=== PATIENT | male | born 1955 | race Caucasian/White ===

== ENCOUNTER 2018-11-24 09:16 | Inpatient (IN) ==
[2018-11-24] MEDS ORDERED: DILTIAZEM 25 MG/5 ML VIAL IV ONE ×2 (09:20→11:05)
[2018-11-24] MEDS ORDERED: 0.9 % SODIUM CHLORIDE 1,000 ML IV ONE (09:20)
[2018-11-24] MEDS ORDERED: DILTIAZEM 125 MG in DEXTROSE 5% IN WATER 100 ML IV SCH (09:45)
--- NOTE | 2018-11-24 10:01 | XRay Report ---
CLINICAL INFORMATION: palpitations COMPARISON: 08/19/2012. FINDINGS: Films taken with suboptimal inspiratory result and rightward rotation. The heart size, mediastinum and pulmonary vessels are normal for technique. The lungs are clear. There are no effusions. The bones and soft tissues are within normal limits. IMPRESSION: Normal chest. Interpreted and Authenticated by: Sin Adams 11/24/18
--- NOTE | 2018-11-24 10:04 | Emergency Department Note ---
Arrhythmia/Palpitations HPI - General Chief Complaint: Arrhythmia/Palpitations Stated Complaint: high BP, tachycardic Time Seen by Provider: 11/24/18 09:37 Source: patient Mode of arrival: ambulatory Limitations: no limitations - History of Present Illness Complaint: rapid heart beat, palpitations Onset (ago): day(s) (since saturday) Duration: constant Severity: moderate Context: occurred during rest, other (he thinks he might have been in the sun a bit more than usual) Associated symptoms: Reports: chest pain, shortness of breath, near-syncope, nausea, anxiety, diaphoresis. Denies: syncope, vomiting, cough, paresthesias, feeling of impending doom, muscle cramps Treatments prior to arrival: other (pt takes metoprolol at night) - Related Data Home Medications Medication Instructions Recorded Confirmed aspirin 81 mg tablet,delayed 81 mg PO QDAY 10/12/15 11/24/18 release Previous Rx's Medication Instructions Recorded lisinopril 10 mg tablet See Rx Instructions .ROUTE 08/15/18 .COMPLEX #45 tablet metoprolol succinate ER 50 mg See Rx Instructions .ROUTE 08/15/18 tablet,extended release 24 hr .COMPLEX #30 tablet Allergies Allergy/AdvReac Type Severity Reaction Status Date / Time No Known Drug Allergies Allergy Verified 11/24/18 09:19 Review of Systems Constitutional: Reports: sweats. Denies: fever, chills Eyes: Denies: vision change ENT ED: Denies: ear pain, throat pain Cardiovascular: Reports: chest pain, palpitations, dyspnea on exertion. Denies: orthopnea, edema, syncope, paroxysmal nocturnal dyspnea Respiratory: Denies: cough, shortness of breath Gastrointestinal: Denies: abdominal pain, nausea, vomiting Genitourinary: Denies: dysuria, frequency Musculoskeletal: Denies: back pain, joint swelling Integumentary: Denies: rash, lesions Neurological: Denies: headache, weakness Psychiatric: Denies: anxiety, depression Endocrine: Denies: fatigue, heat or cold intolerance Hematological/Lymphatic: Denies: easy bleeding, easy bruising Past Medical History - Past Medical History [facility] Narrative: Family History (Last Reviewed 11/14/17 @ 09:07 by LUCIANO Hendricks) Unknown Coronary artery disease Colon polyp Hypertension Mother Hypertension Medical History (Last Reviewed 11/14/17 @ 09:07 by LUCIANO Hendricks) Hypertriglyceridemia (Acute) Low testosterone (Acute) Hyperglycemia (Acute) Liver lesion (Acute) Fatigue (Chronic) Sleep apnea (Chronic) H/O endoscopy (Chronic) Diarrhea (Chronic) Esophageal dilatation (Chronic) History of endoscopy (Chronic 09/05/11) Inguinal neuralgia (Chronic) Hypertension (Chronic) Right groin pain (Chronic) Acute bronchitis (Resolved) Bloating (Resolved) Bursitis of right elbow (Resolved) Change in bowel habit (Resolved) Constipation (Resolved) Gas pain (Resolved) Inguinal hernia bilateral, non-recurrent (Resolved) Injury of right elbow (Resolved) Left groin hernia (Resolved) Left shoulder pain (Resolved) Limited joint range of motion (Resolved) Lower abdominal pain (Resolved) Neuropathy (Resolved) Olecranon bone spur (Resolved) Osteophyte of right elbow (Resolved) Other specified pruritic conditions (Resolved) Shoulder strain (Resolved) Sleep disturbance, unspecified (Resolved) Spasm of muscle (Resolved) Sprain of hand, unspecified site (Resolved) Suprapubic pain (Resolved) Tenderness (Resolved) Weakness (Resolved) All Active Problems (Last Reviewed 11/14/17 @ 09:07 by LUCIANO Hendricks) Abscess or cellulitis of wrist (Acute) Hypertriglyceridemia (Acute) Low testosterone (Acute) Hyperglycemia (Acute) Liver lesion (Acute) Fatigue (Chronic) Sleep apnea (Chronic) S/P ear surgery (Chronic) Hx of shoulder surgery (Chronic) H/O endoscopy (Chronic) Diarrhea (Chronic) Esophageal dilatation (Chronic) History of endoscopy (Chronic 09/05/11) Inguinal neuralgia (Chronic) History of elbow surgery (Chronic) Hypertension (Chronic) Right groin pain (Chronic) H/O inguinal hernia repair (Chronic) History of colonoscopy (Chronic 01/10/15) Past Surgical History (Last Reviewed 11/14/17 @ 09:07 by LUCIANO Hendricks) S/P ear surgery (Chronic) Hx of shoulder surgery (Chronic) History of elbow surgery (Chronic) H/O inguinal hernia repair (Chronic) History of colonoscopy (Chronic 01/10/15) History of repair of left rotator cuff (Chronic 03/02/16) History of hernia surgery (Resolved) Medical history: Reports: no medical history - Social History smoking status: Never smoker Alcohol use: Reports: Occasionally Drug use: Reports: none Physical Exam Limitations: no limitations General appearance: alert, anxious, in distress Head: atraumatic, normocephalic Eye: Present: normal appearance, PERRL, EOMI. Absent: scleral icterus, conjunctival injection ENT: normal oropharynx, mucous membranes moist Neck: Present: trachea midline. Absent: lymphadenopathy, thyromegaly Chest: Present: symmetric chest wall rise Respiratory: Present: normal lung sounds bilaterally. Absent: respiratory dist ress, wheezes, stridor, accessory muscle use, prolonged expiratory phase Cardiovascular: Present: tachycardia. Absent: systolic murmur, diastolic murmur Abdominal: Present: soft. Absent: distention, tenderness, guarding, rebound, rigidity, organomegaly, mass Extremities: Absent: pedal edema, pretibial edema, calf tenderness Back: Absent: CVA tenderness (R), CVA tenderness (L), spinous process tenderness Neurological: Present: alert, oriented X3 Psychiatric: Present: normal affect, normal mood Skin: Present: warm, dry Course Vital Signs Temperature 98.7 F 11/24/18 09:17 Pulse Rate 168 H 11/24/18 09:17 Respiratory Rate 27 H 11/24/18 09:17 Blood Pressure 171/124 11/24/18 09:17 Pulse Oximetry (%) 99 11/24/18 09:17 Temperature 97.2 F 11/24/18 14:39 Pulse Rate 83 11/24/18 14:06 Respiratory Rate 24 H 11/24/18 14:51 Blood Pressure 154/89 11/24/18 14:51 Pulse Oximetry (%) 98 11/24/18 14:51 Arrhythmia/Palpitations - [facility] Narrative Medical decision making narrative: 63-year-old male presenting to the emergency department chief complaint of palpitations. Patient noted to have increased heart rate in urgent care and proceeding with immediately to the emergency department. On further history it is noted patient has had symptoms since Saturday. My understanding from urgent care was that symptoms had just begun, However on further history patient noted to have symptoms since Saturday. Patient with reasonable response to initial dose of Cardizem at 15 mg IV resulting in heart rate decreased to the 130s initially started in the 160s. Initiated drip at 5 titration over roughly an hour period of time to 15 patient with persistent tachycardia at 160s requiring an additional 10 mg of Cardizem IV at 11:07 AM. We were able to get the rate well controlled in the emergency department into the low 100s with the above medication regimen. Patient was also provided with first dose of Eliquis 5 mg p.o. Consulted with hospitalist as well as cardiology to define future course and most reasonable plan would be admission additional evaluation and rate control. - Differential Diagnosis Differential Diagnosis: Likely: palpitations, sinus tachycardia, artial fibrillation, artial flutter, supraventricular tachycardia, WPW. Unlikely: anxiety, ventricular premature beats, ventricular tachycardia - Lab Data Result diagrams: 11/24/18 09:43 11/24/18 09:43 Lab Results 11/24/18 11/24/18 11/24/18 Range/Units 09:43 09:43 09:43 WBC 9.0 (4.5-11.0) K/mcL RBC 4.80 (4.50-5.90) M/mcL Hgb 14.8 (13.5-16.5) g/dL Hct 44.5 (41.0-55.0) % MCV 92.8 (80.0-100.0) fL MCH 30.8 (26.0-34.0) pg MCHC 33.1 (31.0-36.0) g/dL RDW 13.4 (11.5-14.5) % Plt Count 181 (140-440) K/mcL MPV 10.1 (7.4-10.4) fL Gran % 65.8 (38.0-78.0) % Lymph % (Auto) 24.3 (15.5-49.0) % [place] % (Auto) 8.4 (1.0-12.0) % Eos % (Auto) 1.1 (0.0-7.0) % Baso % (Auto) 0.4 (0.0-2.0) % Gran # 5.9 (1.8-8.0) K/mcL Lymph # (Auto) 2.2 (1.5-4.8) K/mcL [place] # (Auto) 0.8 (0.1-0.9) K/mcL Eos # (Auto) 0.1 (0.0-0.7) K/mcL Baso # (Auto) 0 (0.0-0.3) K/mcL Sodium 142 (133-145) mmol/L Potassium 4.0 (3.3-5.1) mmol/L Chloride 104 (96-108) mmol/L Carbon Dioxide 25 (22-30) mmol/L Anion Gap 13.0 (8-16) BUN 14 (8-23) mg/dl Creatinine 0.9 (0.7-1.2) mg/dl GFR Calculation 90 Glucose 106 H (70-105) mg/dL Calcium 10.0 (8.6-10.4) mg/dl Magnesium (1.6-2.5) mg/dL Total Bilirubin 0.7 (0.0-1.0) mg/dL AST 8 (0-37) U/l ALT 24 (0-40) U/l Alkaline Phosphatase 68 (39-117) U/L Troponin T < 0.01 (0-0.03) ng/ml NT-Pro-B Natriuret Pep 2642.0 H (0-125) pg/ml Total Protein 7.5 (5.9-8.4) gm/dL Albumin 4.5 (3.2-5.2) gm/dL Globulin 3.0 (2.2-3.7) gm/dL Albumin/Globulin Ratio 1.5 (1.0-2.3) Triglycerides (<150) mg/dl Cholesterol (<200) mg/dl LDL Cholesterol, Calc (SEE CHART) mg/dl Non-HDL Cholesterol (LDL TARGET+30) HDL Cholesterol (>40) mg/dl TSH (0.27-5.01) uIU/ml 11/24/18 11/24/18 Range/Units 09:43 09:43 WBC (4.5-11.0) K/mcL RBC (4.50-5.90) M/mcL Hgb (13.5-16.5) g/dL Hct (41.0-55.0) % MCV (80.0-100.0) fL MCH (26.0-34.0) pg MCHC (31.0-36.0) g/dL RDW (11.5-14.5) % Plt Count (140-440) K/mcL MPV (7.4-10.4) fL Gran % (38.0-78.0) % Lymph % (Auto) (15.5-49.0) % [place] % (Auto) (1.0-12.0) % Eos % (Auto) (0.0-7.0) % Baso % (Auto) (0.0-2.0) % Gran # (1.8-8.0) K/mcL Lymph # (Auto) (1.5-4.8) K/mcL [place] # (Auto) (0.1-0.9) K/mcL Eos # (Auto) (0.0-0.7) K/mcL Baso # (Auto) (0.0-0.3) K/mcL Sodium (133-145) mmol/L Potassium (3.3-5.1) mmol/L Chloride (96-108) mmol/L Carbon Dioxide (22-30) mmol/L Anion Gap (8-16) BUN (8-23) mg/dl Creatinine (0.7-1.2) mg/dl GFR Calculation Glucose (70-105) mg/dL Calcium (8.6-10.4) mg/dl Magnesium 2.1 (1.6-2.5) mg/dL Total Bilirubin (0.0-1.0) mg/dL AST (0-37) U/l ALT (0-40) U/l Alkaline Phosphatase (39-117) U/L Troponin T (0-0.03) ng/ml NT-Pro-B Natriuret Pep (0-125) pg/ml Total Protein (5.9-8.4) gm/dL Albumin (3.2-5.2) gm/dL Globulin (2.2-3.7) gm/dL Albumin/Globulin Ratio (1.0-2.3) Triglycerides 149 (<150) mg/dl Cholesterol 186 (<200) mg/dl LDL Cholesterol, Calc 109 H (SEE CHART) mg/dl Non-HDL Cholesterol 138 H (LDL TARGET+30) HDL Cholesterol 48 (>40) mg/dl TSH 1.62 (0.27-5.01) uIU/ml - EKG Data Rate: tachycardia Rhythm: SVT [place]/QRS: normal Interpretation: nonspecific ST-T wave changes (SVT) Critical Care Time Critical Care Time: Yes Total Critical Care Time: 45 Attestation: This critical care time was direct patient care exclusive of other procedures. 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) Condition: Fair
[2018-11-24 10:24] LABS: Basophils # (Auto) 0 K/mcL (0.0-0.3); Basophils % (Auto) 0.4 % (0.0-2.0); Eosinophils # (Auto) 0.1 K/mcL (0.0-0.7); Eosinophils % (Auto) 1.1 % (0.0-7.0); Granulocytes % (Auto) 65.8 % (38.0-78.0); Hematocrit 44.5 % (41.0-55.0); Hemoglobin 14.8 g/dL (13.5-16.5); Lymphocytes # (Auto) 2.2 K/mcL (1.5-4.8); Lymphocytes % (Auto) 24.3 % (15.5-49.0); Mean Cell Volume 92.8 fL (80.0-100.0); Mean Corpuscular HGB Conc 33.1 g/dL (31.0-36.0); Mean Platelet Volume 10.1 fL (7.4-10.4); Monocytes # (Auto) 0.8 K/mcL (0.1-0.9); Monocytes % (Auto) 8.4 % (1.0-12.0); Platelet Count 181 K/mcL (140-440); Red Cell Distribution Width 13.4 % (11.5-14.5)
[2018-11-24 10:49] LABS: ALT/SGPT 24 U/l (0-40); AST/SGOT 8 U/l (0-37); Albumin 4.5 gm/dL (3.2-5.2); Albumin/Globulin Ratio 1.5 (1.0-2.3); Alkaline Phosphatase 68 U/L (39-117); Bilirubin,Total 0.7 mg/dL (0.0-1.0); Blood Urea Nitrogen 14 mg/dl (8-23); Carbon Dioxide 25 mmol/L (22-30); Chloride 104 mmol/L (96-108); Glomerular Filtration Rate 90; Glucose 106 mg/dL (70-105)
[2018-11-24 12:36] LABS: Thyroid Stimulating Hormone 1.62 uIU/ml (0.27-5.01)
[2018-11-24] MEDS ORDERED: APIXABAN 5 MG TABLET PO ONE (12:38)
--- NOTE | 2018-11-24 13:37 | Internal Med History&Physical ---
Medical - H&P: HPI Patient information: Note initiated : 11/24/18 at 1:32 pm Service Date, if different from initiated Date: [] Patient: Navi Cervantes a 63 y/o M admitted on for high BP, tachycardic. Chief Complaint: [] History of present illness: Mr. Cervantes is a 63 year old M Who presents [facility] the ED from [facility] for palpitations hypertension malaise. Patient recently went on a 5-day rafting [place] . Saturday he was putting stuff away and just felt sluggish and weak. He was out in the hot sun and especially after the float he just thought he was dehydrated and tired from the sun. He had hard time sleeping that night with his CPAP. Also noticed shortness of breath especially when he was laying down. And he did feel like his heart was rapidly meeting. Symptoms progressed Saturday and then he was a little bit better on Saturday. And then on he went to see his primary care provider but symptoms just seem to get worse and thus went to [facility] and was found to have significant tachycardia and hypertension was sent over to the ED. He is typically pretty active [place] and has no issues with shortness of breath or energy. He took his blood pressure over the weekend it was 155/90 which is high for him is typically well controlled and he has not missed any of his medications. He has couple drinks 3-4 times a week, no history of arrhythmia or family history of arrhythmia. No other medical conditions other than obstructive sleep apnea and hypertension. He also complained of some indigestion or "gas bubble" and some diarrhea since Saturday. Also has a bit of a headache, and has had lightheadedness during this episode. In the ED is up to 168 started on diltiazem drip. Case was also discussed with Dr. Lovett at [facility]. And because the symptoms had been got going over 48 hours it was recommended to obtain rate control started on anticoagulation and then follow-up with cardiology for potential cardioversi on at a later time. Denies any fevers chills or chest pain or coughing. Review of Systems: Pertinent positives as above. denies fever/chills/nausea/vomiting/chest pain/cough. Remaining 10 point review of system reviewed negative Medical - H&P: PMH Medical history: Medical History (Last Reviewed 11/14/17 @ 09:07 by LUCIANO Hendricks) Hypertension Obstructive sleep apnea on CPAP Past Surgical History (Last Reviewed 11/14/17 @ 09:07 by LUCIANO Hendricks) S/P ear surgery (Chronic) Hx of shoulder surgery (Chronic) History of elbow surgery (Chronic) H/O inguinal hernia repair (Chronic) History of colonoscopy (Chronic 01/10/15) History of repair of left rotator cuff (Chronic 03/02/16) History of hernia surgery (Resolved) Family History (Last Reviewed 11/14/17 @ 09:07 by LUCIANO Hendricks) Unknown Coronary artery disease Colon polyp Hypertension Mother Hypertension Social History (Last Updated 11/24/18 @ 09:18 by Radha Buitrago PA-C) Denies tobacco Drinks 3-4 times per week a couple drinks 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 Medical - H&P: Meds Home Medications Medication Instructions Recorded Confirmed Type aspirin 81 mg tablet,delayed 81 mg PO QDAY 10/12/15 11/24/18 History release lisinopril 10 mg tablet See Rx Instructions .ROUTE 08/15/18 11/24/18 Rx .COMPLEX #45 tablet metoprolol succinate ER 50 mg See Rx Instructions .ROUTE 08/15/18 11/24/18 Rx tablet,extended release 24 hr .COMPLEX #30 tablet Allergies Allergy/AdvReac Type Severity Reaction Status Date / Time No Known Drug Allergies Allergy Verified 11/24/18 09:19 Medical - H&P: Exam - Constitutional Vitals: Temp Pulse Resp BP Pulse Ox 98.7 F 86 24 H 141/78 95 11/24/18 09:17 11/24/18 12:03 11/24/18 12:03 11/24/18 12:01 11/24/18 12:03 Exam: General: Alert, Awake, No acute Distress Eyes/N/T: EOMI, PEERL, DMM Head/Neck: neck supple, normocephalic atraumatic CV: Tachycardic and regular with occasional irregularity, no murmurs, normal s1/s2 Pulm: Clear b/l, no wheezing/rhonchi/rales Abd: soft, nontender, +BS x4 Ext: no clubbing/cyanosis/edema Neuro: Alert, no focal deficits, moves all extremities, CN 2-12 grossly intact, symmetrical strength b/l upper/lower, sensations intact b/l upper/lower Skin: warm/dry Medical - H&P: Reslt - Labs CBC & Chem 7: 11/24/18 09:43 11/24/18 09:43 Labs: Short CBC 11/24/18 Range/Units 09:43 WBC 9.0 (4.5-11.0) K/mcL Hgb 14.8 (13.5-16.5) g/dL Hct 44.5 (41.0-55.0) % Plt Count 181 (140-440) K/mcL BMP 11/24/18 09:43 Sodium 142 Potassium 4.0 Chloride 104 Carbon Dioxide 25 BUN 14 Creatinine 0.9 Glucose 106 H Calcium 10.0 Cardiac Enzymes 11/24/18 Range/Units 09:43 Troponin T < 0.01 (0-0.03) ng/ml Liver Function 11/24/18 Range/Units 09:43 Total Bilirubin 0.7 (0.0-1.0) mg/dL AST 8 (0-37) U/l ALT 24 (0-40) U/l Alkaline Phosphatase 68 (39-117) U/L Albumin 4.5 (3.2-5.2) gm/dL - Impressions Chest x-ray unremarkable Medical - H&P: A/P - Narrative A/P Narrative: A: *Atrial flutter, new onset but greater than 48 hours: -Mg/TSH/Trop ok; good oxygenation on RA *HTN Urgency: *RIMA on CPAP: * P: -wean of dilt gtt to BB -echo pending -IV hydration -Case was discussed with [facility] bin packer Dr. Lovett because this has been going on for you in 48 hours goal will be to rate control and start anticoagulation then for follow-up with cardiology for likely cardioversion at some point -f/u with Cardiology (schedule with Dr. Sethi if possible) - - -stool studies if has further episode of diarrhea -home cpap -ppx: Eliquis
[2018-11-24] MEDS ORDERED: METOCLOPRAMIDE 10 MG/2 ML VIAL IV PRN (14:31)
[2018-11-24] MEDS ORDERED: POTASSIUM CHLORIDE 20 MEQ TABLET PO PRN ×2 (14:31)
[2018-11-24] MEDS ORDERED: ONDANSETRON 4 MG/2 ML VIAL IV PRN (14:31)
[2018-11-24] MEDS ORDERED: IPRATROPIUM/ALBUTEROL 3 ML AMPUL.NEB NEB PRN (14:31)
[2018-11-24] MEDS ORDERED: MAGNESIUM SULFATE 2 GM/50 ML BAG IV PRN (14:31)
[2018-11-24] MEDS ORDERED: POTASSIUM CHLORIDE 40 MEQ in DEXTROSE 5% IN WATER 500 ML IV PRN (14:31)
[2018-11-24] MEDS ORDERED: METOPROLOL TARTRATE 5 MG/5 ML VIAL IV PRN (14:31)
[2018-11-24] MEDS ORDERED: POLYETHYLENE GLYCOL 3350 17 GM PACKET PO PRN (14:31)
[2018-11-24] MEDS ORDERED: 0.9 % SODIUM CHLORIDE 1,000 ML IV SCH (14:31)
[2018-11-24] MEDS ORDERED: LABETALOL 5 MG/ML ML IV PRN (14:31)
[2018-11-24] MEDS: 0.9 % SODIUM CHLORIDE 10 ML SYRINGE IV SCH (14:55)
[2018-11-24 14:56] LABS: HDL Cholesterol 48 mg/dl (>40); LDL Cholesterol,Calculated 109 mg/dl (SEE CHART); Non-HDL Cholesterol 138 (LDL TARGET+30); Triglycerides 149 mg/dl (<150)
[2018-11-24] MEDS: METOPROLOL SUCCINATE 50 MG TAB.XL.24H PO SCH (15:08)
[2018-11-24] MEDS: LISINOPRIL 10 MG TABLET PO SCH (15:08)
[2018-11-24] MEDS: DILTIAZEM 125 MG in DEXTROSE 5% IN WATER 100 ML IV SCH ×2 (18:40→23:47)
[2018-11-24] MEDS: ACETAMINOPHEN 325 MG TABLET PO PRN (18:54)
[2018-11-24] MEDS: APIXABAN 5 MG TABLET PO SCH (20:15)
[2018-11-25] MEDS: 0.9 % SODIUM CHLORIDE 10 ML SYRINGE IV SCH ×5 (00:33→22:00)
[2018-11-25 06:03] LABS: Basophils # (Auto) 0 K/mcL (0.0-0.3); Basophils % (Auto) 0.6 % (0.0-2.0); Eosinophils # (Auto) 0.2 K/mcL (0.0-0.7); Granulocytes % (Auto) 54.2 % (38.0-78.0); Hematocrit 36.1 % (41.0-55.0); Hemoglobin 11.9 g/dL (13.5-16.5); Lymphocytes # (Auto) 1.8 K/mcL (1.5-4.8); Lymphocytes % (Auto) 32.5 % (15.5-49.0); Mean Cell Volume 93.8 fL (80.0-100.0); Mean Corpuscular HGB Conc 33.1 g/dL (31.0-36.0); Mean Platelet Volume 10.2 fL (7.4-10.4); Monocytes # (Auto) 0.5 K/mcL (0.1-0.9); Monocytes % (Auto) 9.7 % (1.0-12.0); Platelet Count 137 K/mcL (140-440); RBC 3.85 M/mcL (4.50-5.90); Red Cell Distribution Width 13.5 % (11.5-14.5); WBC 5.6 K/mcL (4.5-11.0)
[2018-11-25 06:50] LABS: ALT/SGPT 18 U/l (0-40); AST/SGOT 5 U/l (0-37); Albumin 3.5 gm/dL (3.2-5.2); Albumin/Globulin Ratio 1.6 (1.0-2.3); Alkaline Phosphatase 52 U/L (39-117); Bilirubin,Direct < 0.2 mg/dL (0.0-0.3); Bilirubin,Total 0.4 mg/dL (0.0-1.0); Blood Urea Nitrogen 13 mg/dl (8-23); Calcium 8.4 mg/dl (8.6-10.4); Carbon Dioxide 23 mmol/L (22-30); Chloride 105 mmol/L (96-108); Globulin 2.2 gm/dL (2.2-3.7); Glomerular Filtration Rate 79; Glucose 93 mg/dL (70-105); Lactate Dehydrogenase 156 U/L (94-250); Phosphorous 3.7 mg/dL (2.7-4.5); Triglycerides 154 mg/dl (<150)
--- NOTE | 2018-11-25 07:08 | Internal Med Progress Note ---
Medical - PN: Subj Patient information: Note initiated : 11/25/18 at 7:00 am Service Date, if different from initiated Date: [] Patient: Navi Cervantes a 63 y/o M admitted on 11/24/18 for high BP, tachycardic. Chief Complaint: [] Interval history: Mr. Cervantes is a 63 year old M Who presents to the ED from [facility] for palpitations hypertension malaise. Patient recently went on a 5-day rafting flow [place] ended on . Saturday he was putting stuff away and just felt sluggish and weak. He was out in the hot sun and especially after the float he just thought he was dehydrated and tired from the sun. He had hard time sleeping that night with his CPAP. Also noticed shortness of breath especially when he was laying down. And he did feel like his heart was rapidly meeting. Symptoms progressed Saturday and then he was a little bit better on Saturday. And then on he went to see his primary care provider but symptoms just seem to get worse and thus went to [facility] and was found to have significant tachycardia and hypertension was sent over to the ED. He is typically pretty active [place] and has no issues with shortness of breath or energy. He took his blood pressure over the weekend it was 155/90 which is high for him is typically well controlled and he has not missed any of his medications. He has couple drinks 3-4 times a week, no history of arrhythmia or family history of arrhythmia. No other medical conditions other than obstructive sleep apnea and hypertension. He also complained of some indigestion or "gas bubble" and some diarrhea since Saturday. Also has a bit of a headache, and has had lightheadedness during this episode. In the ED is up to 168 started on diltiazem drip. Case was also discussed with Dr. Lovett at [facility]. And because the symptoms had been got going over 48 hours it was recommended to obtain rate control started on anticoagulation and then follow-up with cardiology for potential cardioversio n at a later time. Denies any fevers chills or chest pain or coughing. 11/25 Converted to sinus rhythm last night at 2130. Doing quite well until 930 and developed sudden severe headache 9 out of 10 at its posterior and behind the eyes. Subsequent nausea vomiting. Given Zofran slowly improving symptoms. CT brain pending Otherwise denied fever chills chest pain shortness of breath stomach pain diarrhea constipation. - Constitutional Vitals: Vital Signs Temp Pulse Resp BP Pulse Ox 97.0 F 62 14 113/77 96 11/25/18 04:01 11/25/18 04:01 11/25/18 04:01 11/25/18 04:01 11/25/18 04:01 Period Temp Pulse Resp BP Sys/Sullivan Pulse Ox Last 24 Hr 96.9 F-98.7 F 39-168 7-30 93-205/55-190 92-100 Intake and Output 11/24/18 11/25/18 11/25/18 21:59 05:59 13:59 Intake Total 51 94 Output Total 1525 350 Balance -1474 -256 Weight 101.151 kg Intake & Output: Intake & Output 11/24/18 11/25/18 11/25/18 21:59 05:59 13:59 Intake Total 51 94 Output Total 1525 350 Balance -1474 -256 Weight 101.151 kg Intake: IV 51 94 Cardizem 125 mg In Dextrose 5% 51 94 in Water 100 ml @ 5 MG/HR 5 mls /hr IV Q12H [facility] Rx#:[id number] Oral 0 Output: Void Amount 1525 350 Other: Urine Appearance Clear Clear Urine Color Pale Dark Yellow Urine Odor Normal Exam: General: Alert, Awake, No acute Distress Eyes/N/T: EOMI, Head/Neck: neck supple, CV: RRR, No murmurs Pulm: Clear b/l, no wheezing/rhonchi/rales Abd: soft, nontender, +BS x4 Ext: no clubbing/cyanosis/edema Neuro: Alert, no focal deficits, moves all extremities, Skin: warm/dry Medical - PN: Obj Da - Labs CBC & Chem 7: 11/25/18 03:04 11/25/18 03:04 Labs: Abnormal Lab Results 11/25/18 11/25/18 11/24/18 03:04 03:04 09:43 RBC 3.85 L Hgb 11.9 L Hct 36.1 L Plt Count 137 L Glucose Calcium 8.4 L NT-Pro-B Natriuret Pep Total Protein 5.7 L Triglycerides 154 H LDL Cholesterol, Calc 109 H Non-HDL Cholesterol 138 H 11/24/18 09:43 RBC Hgb Hct Plt Count Glucose 106 H Calcium NT-Pro-B Natriuret Pep 2642.0 H Total Protein Triglycerides LDL Cholesterol, Calc Non-HDL Cholesterol Meds: Medications Acetaminophen (Tylenol) 650 mg PO Q6HP PRN PRN Reason: PAIN/FEVER > 101 Last Admin: 11/24/18 18:54 Dose: 650 mg Documented by: Albuterol/Ipratropium (Duoneb) 3 ml NEB Q4HP PRN PRN Reason: Shortness Of Breath Apixaban (Eliquis) 5 mg PO BID [facility] Last Admin: 11/24/18 20:15 Dose: 5 mg Documented by: Diltiazem HCl 125 mg/ Dextrose 125 mls @ 5 mls/hr IV Q12H [facility]; Protocol Last Titration: 11/25/18 02:25 Dose: 0 mg/hr, 0 mls/hr Documented by: Potassium Chloride 40 meq/ (Dextrose) 520 mls @ 130 mls/hr IV UD PRN PRN Reason: Potassium < 3 Magnesium Sulfate (Magnesium Sulfate) 2 gm in 50 mls @ 50 mls/hr IV UD PRN PRN Reason: Magnesium </= 1.6 Labetalol HCl (Trandate) 0 mg IV Q2HP PRN PRN Reason: Hypertension Lisinopril (Zestril) 15 mg PO DAILY [facility] Last Admin: 11/24/18 15:08 Dose: 15 mg Documented by: Metoclopramide HCl (Reglan) 10 mg IV Q6HP PRN PRN Reason: Nausea And Vomiting Metoprolol Succinate (Toprol Xl) 50 mg PO DAILY [facility] Last Admin: 11/24/18 15:08 Dose: 50 mg Documented by: Metoprolol Tartrate (Lopressor) 5 mg IV Q2HP PRN PRN Reason: Tachyarrhythmias HR>110 Morphine Sulfate (Morphine) 0 mg IV Q3HP PRN PRN Reason: Pain Ondansetron HCl (Zofran) 4 mg IV Q4HP PRN PRN Reason: Nausea And Vomiting Polyethylene Glycol (Miralax) 17 gm PO DAILYP PRN PRN Reason: Constipation Potassium Chloride (Kdur) 40 meq PO UD PRN PRN Reason: Potssium is 3-3.5 Potassium Chloride (Kdur) 40 meq PO UD PRN PRN Reason: Potassium < 3 Sodium Chloride (Saline Flush) 10 ml IV Q8 VIVIANA Last Admin: 11/25/18 05:59 Dose: Not Given Documented by: Medical - PN: A/P - Time Spent With Patient Total time spent is greater than 50% in coordination of care (as documented) at patient's floor/unit and/or counseling patient: - Narrative A/P Narrative: A: *Atrial flutter, new onset but greater than 48 hours: converted to NSR @2130 on 11/24 -Mg/TSH/Trop ok; good oxygenation on RA -echo no significant findings, mild atrial enlargement *HTN Urgency: resolved, noticeable change in BP trend after NSR conversion *RIMA on CPAP: *Diarrhea WINDOWS SERVER ADMINISTRATOR: *MCGRAW: sudden/severe P: -off dilt gtt, cont BB -echo pending -Case was discussed with [facility] gymnastic coach Dr. Lovett because this has been going on for over 48 hours goal will be to rate control and start anticoagulation then for follow-up with cardiology for likely cardioversion at some point if still needed -f/u with Cardiology (schedule with Dr. Sethi if possible) -CT brain pending -stool studies if has further episode of diarrhea -home cpap -ppx: Eliquis
[2018-11-25] MEDS ORDERED: DILTIAZEM 125 MG in DEXTROSE 5% IN WATER 100 ML IV PRN (09:15)
[2018-11-25] MEDS: METOPROLOL SUCCINATE 50 MG TAB.XL.24H PO SCH (09:32)
[2018-11-25] MEDS: APIXABAN 5 MG TABLET PO SCH ×2 (09:32→22:07)
[2018-11-25] MEDS: LISINOPRIL 10 MG TABLET PO SCH (09:32)
[2018-11-25] MEDS: ACETAMINOPHEN 325 MG TABLET PO PRN ×2 (09:45→14:13)
--- NOTE | 2018-11-25 10:35 | Cat Scan Report ---
CLINICAL INFORMATION: Headache COMPARISON: 08/24/2015 TECHNIQUE: 2.5 mm helical slices were obtained in the skull base to vertex. Following reconstruction, axial reformatted images were reviewed at bone and parenchymal windows. The exam was performed using radiation dose optimization techniques including, but not limited to, automated exposure control, adjustment of the mA and/or kV according to patient size and use of iterative reconstruction technique. FINDINGS: The ventricles, sulci, fissures, and cisterns are normal in size and configuration. No extra-axial fluid collections are identified. The cerebrum, brainstem and cerebellum are unremarkable. There is no evidence of hemorrhage, mass effect, or edema. Bone windows show no osseous abnormality. IMPRESSION: Normal head CT without contrast. Interpreted and Authenticated by: Sin Adams 11/25/18
--- NOTE | 2018-11-25 14:41 | Discharge Summary ---
Medical - DS: Prov Patient information: Note initiated : 11/25/18 at 2:39 pm Service Date, if different from initiated Date: [] Patient: Navi Cervantes 63 y/o M admitted on 11/24/18 for high BP, tachycardic. Chief Complaint: [] Date of admission: 11/24/18 14:24 Discharge date: 11/26/18 Primary care physician: Adia Ruiz Consults: 11/24/18 13:32 Consult to Physician [CONS] Stat Comment: Consulting Provider: Sean Romero Reason For Exam: Physician to Consult Medical - DS: Meds - Discharge Medications Prescriptions: Apixaban [Eliquis] 5 mg PO BID #60 tab Active and Home Medications: Home Medications aspirin 81 mg tablet,delayed release 81 mg PO QDAY 10/12/15 [History Confirmed 11/24/18 Last Taken Unknown] lisinopril 10 mg tablet See Rx Instructions .ROUTE .COMPLEX #45 tablet 08/15/18 [Rx Confirmed 11/24/18 Last Taken Unknown] metoprolol succinate ER 50 mg tablet,extended release 24 hr See Rx Instructions .ROUTE .COMPLEX #30 tablet 08/15/18 [Rx Confirmed 11/24/18 Last Taken Unknown] Medical - DS: Hosp Hospital course: Mr. Cervantes is a 63 year old M Mr. Cervantes is a 63 year old M Who [facility] for palpitations hypertension malaise. Patient recently went [facility] a 5-day [facility] Saturday he was putting stuff away and just felt sluggish and weak. He was out in the hot sun and especially after the float he just thought he was dehydrated and tired from the sun. He had hard time sleeping that night with his CPAP. Also noticed shortness of breath especially when he was laying down. And he did feel like his heart was rapidly meeting. Symptoms progressed Saturday and then he was a little bit better on Saturday. And then on Saturday's he went to see his primary care provider but symptoms just seem to get worse and thus [facility] and was found to have significant tachycardia and hypertension was sent over to the ED. He is typically pretty active [place] and has no issues with shortness of breath or energy. He took his blood pressure over the weekend it was 155/90 which is high for him is typically well controlled and he has not missed any of his medications. He has couple drinks 3-4 times a week, no history of arrhythmia or family history of arrhythmia. No other medical conditions other than obstructive sleep apnea and hypertension. He also complained of some indigestion or "gas bubble" and some diarrhea since Saturday. Also has a bit of a headache, and has had lightheadedness during this episode. In the ED is up to 168 started on diltiazem drip. Case was also discussed with Dr. Lovett at [facility]. And because the symptoms had b een got going over 48 hours it was recommended to obtain rate control started on anticoagulation and then follow-up with cardiology for potential cardioversion at a later time. Denies any fevers chills or chest pain or coughing. 11/25 Converted to sinus rhythm last night at 2130. Doing quite well until 930 and developed sudden severe headache 9 out of 10 at its posterior and behind the eyes. Subsequent nausea vomiting. Given Zofran slowly improving symptoms. CT brain pending Otherwise denied fever chills chest pain shortness of breath stomach pain diarrhea constipation. 11/26 Normal sinus rhythm. Patient doing well and stable for discharge Discharge diagnosis: Flutter atrial flutter hypertension emergency obstructive sleep apnea heada - Time Spent with Patient Total time spent providing and/or coordinating discharge services: Greater than 30 minutes Medical - DS: Exam - Constitutional Vitals: Vital Signs Temp Pulse Resp BP Pulse Ox 11/25/18 14:13 97.6 F 11/25/18 10:30 97.6 F 11/25/18 09:32 141/81 11/25/18 08:04 65 94 11/25/18 08:01 97.6 F 67 132/88 95 11/25/18 06:55 80 126/77 97 11/25/18 06:01 69 128/80 98 11/25/18 05:31 65 122/69 96 11/25/18 05:01 66 16 117/67 96 11/25/18 04:31 62 16 125/78 94 11/25/18 04:01 97.0 F 62 14 113/77 96 11/25/18 03:31 59 L 16 111/77 95 11/25/18 03:01 58 L 16 108/67 96 11/25/18 02:31 62 7 L 99/61 96 11/25/18 02:01 58 L 15 94/55 95 11/25/18 01:31 58 L 16 110/74 93 11/25/18 01:01 59 L 16 93/56 94 11/25/18 00:31 61 16 109/73 96 11/25/18 00:01 62 18 102/70 96 11/24/18 23:31 96.9 F L 58 L 8 L 102/73 97 11/24/18 23:01 68 21 101/69 97 11/24/18 22:33 72 30 H 116/75 97 11/24/18 22:01 61 13 104/80 96 11/24/18 21:31 84 17 121/73 94 11/24/18 21:01 84 18 124/75 94 11/24/18 20:31 85 18 123/85 94 11/24/18 20:01 98.4 F 86 20 132/85 95 11/24/18 19:31 86 20 132/80 95 11/24/18 19:01 83 17 136/78 95 11/24/18 18:31 84 24 H 130/75 95 11/24/18 18:01 85 24 H 130/79 93 11/24/18 17:31 83 26 H 132/78 93 11/24/18 17:01 28 H 150/97 11/24/18 16:31 86 26 H 140/94 94 11/24/18 16:01 54 L 20 139/74 94 11/24/18 15:44 41 L 23 H 150/78 95 11/24/18 14:51 24 H 154/89 98 11/24/18 14:47 25 H 155/75 99 Intake and Output 11/25/18 11/25/18 11/25/18 05:59 13:59 21:59 Intake Total 94 960 Output Total 350 700 Balance -256 260 Intake: IV 94 Cardizem 125 mg In Dextrose 5% 94 in Water 100 ml @ 5 MG/HR 5 mls /hr IV Q12H [facility] Rx#:[id number] Oral 0 960 Output: Urine Catheter Amount 400 Void Amount 350 300 Other: Meal Lunch Percent of Meal Consumed 100% Feeding Ability Independent Urine Appearance Clear Clear Urine Color Dark Yellow Pale Medical - DS: Data Labs on day of discharge: Labs from last 24 hours 07/30/19 07/30/19 07/29/19 03:04 03:04 09:43 WBC 5.6 RBC 3.85 L Hgb 11.9 L Hct 36.1 L MCV 93.8 MCH 31.0 MCHC 33.1 RDW 13.5 Plt Count 137 L MPV 10.2 Gran % 54.2 Lymph % (Auto) 32.5 [place] % (Auto) 9.7 Eos % (Auto) 3.0 Baso % (Auto) 0.6 Gran # 3.0 Lymph # (Auto) 1.8 [place] # (Auto) 0.5 Eos # (Auto) 0.2 Baso # (Auto) 0 Sodium 141 Potassium 3.8 Chloride 105 Carbon Dioxide 23 Anion Gap 13.0 BUN 13 Creatinine 1.0 GFR Calculation 79 Glucose 93 Uric Acid 6.0 Calcium 8.4 L Phosphorus 3.7 Magnesium 1.8 Total Bilirubin 0.4 Direct Bilirubin < 0.2 GGT 20 AST 5 ALT 18 Alkaline Phosphatase 52 Lactate Dehydrogenase 156 Total Protein 5.7 L Albumin 3.5 Globulin 2.2 Albumin/Globulin Ratio 1.6 Triglycerides 154 H 149 Cholesterol 186 LDL Cholesterol, Calc 109 H Non-HDL Cholesterol 138 H HDL Cholesterol 48 Medical - DS: A/P - Patient/Caregiver Discharge Instructions Activity: increase activity as tolerated Diet: Cardiac Prescriptions: Apixaban [Eliquis] 5 mg PO BID #60 tab - Follow up Plan Follow up with: Adia Ruiz ARNP [Primary Care Provider] - 12/03/18 8:45 am (Please check in at 8:30) Doug Sethi MD [Physician] - 12/08/18 8:30 am (Please check in at 8:00 am) Disposition: Home, Self-Care Prognosis: Fair Rehab Potential: Fair Overall status at discharge: patient is back to baseline
[2018-11-25] MEDS ORDERED: traMADol 50 MG TABLET PO PRN (14:56)
[2018-11-26] MEDS: 0.9 % SODIUM CHLORIDE 10 ML SYRINGE IV SCH (05:50)
[2018-11-26] MEDS: METOPROLOL SUCCINATE 50 MG TAB.XL.24H PO SCH (08:58)
[2018-11-26] MEDS: ACETAMINOPHEN 325 MG TABLET PO PRN (08:58)
[2018-11-26] MEDS: LISINOPRIL 10 MG TABLET PO SCH (08:58)
[2018-11-26] MEDS: APIXABAN 5 MG TABLET PO SCH (08:59)
== END 2018-11-26 13:45 | disposition home or self-care (01) | DRG 309 ==
LOC: ED 09:16 → ICU 14:20
PROVIDERS: ADMIT Internal Medicine; ATTEND Internal Medicine